=== PATIENT | female | born 1975 | race Caucasian/White ===

== ENCOUNTER 2025-04-09 22:50 | Emergency (ER) | payer OTHER, SELFPAY ==
--- NOTE | 2025-04-09 22:55 | ECG_ITS ---
Test Date: 2025-04-09 23:11:59 Measurements Intervals [place] Rate: 76 P: 53 AL: 150 QRS: -16 QRSD: 86 T: 17 QT: 390 QTc: 441 Interpretive Statements SINUS RHYTHM NORMAL ELECTROCARDIOGRAM No previous ECG available for comparison Electronically Signed On 04-11-2025 07:57:34 CDT by Tera Dalton M.D.
[2025-04-09 23:00] VITALS: BP 140/89; PULSE 102; RESP 18; TEMP 36.4; O2SAT 93
[2025-04-09 23:18] LABS: Hematocrit 45.8 % (35.0-49.0); Hemoglobin 15.5 g/dL (12.0-15.0); Immature Granulocyte Percent A 0.2 % (0.0-0.0); Lymphocytes Absolute Auto 2.21 K/mm3 (1.10-4.50); Mean Corpuscular HGB Conc 33.8 g/dL (32-36); Mean Corpuscular Hemoglobin 30.3 pg (27.0-31.0); Mean Corpuscular Volume 89.6 fL (78.0-102.0); Nucleated Red Blood Cells Absolute Auto 0.00 K/mm3 (0.00-0.00); Nucleated Red Blood Cells Perc 0.0 % (0-0.0); Platelet Count Result 271 K/mm3 (150-420); Red Blood Count 5.11 M/mm3 (4.20-5.40); White Blood Count 5.8 K/mm3 (4.8-10.8)
[2025-04-09 23:31] LABS: Acetaminophen < 10 ug/mL (10-30); Salicylate < 1.0 mg/dL (2-20)
[2025-04-09 23:34] LABS: Alanine Aminotransferase 30 U/L (6-35); Anion Gap 9 mmol/L (4-12); Aspartate Amino Transferase 27 U/L (14-36); Bilirubin,Total 0.6 mg/dL (0.2-1.3); Blood Urea Nitrogen 17 mg/dL (7-17); Calcium 9.0 mg/dL (8.4-10.2); Carbon Dioxide 26 mmol/L (22-30); Chloride 102 mmol/L (98-107); Estimated CRCL calculation 64 ml/min; Estimated Glomerular Filt Rate 58; Glucose 119 mg/dL (65-110); Osmolality Calculated 286 mOsm/kg (285-295); Potassium 3.8 mmol/L (3.4-5.0); Sodium 137 mmol/L (137-145)
[2025-04-09 23:35] LABS: Albumin Level 4.4 g/dL (3.5-5.1); Alkaline Phosphatase 42 U/L (38-126); Total Protein 7.3 g/dL (6.3-8.2)
[2025-04-09 23:39] LABS: Add Urine Microscopic? YES; Appearance Urine Clear (Clear); Glucose Urine UA Negative (Negative); Leukocyte Esterase Ur Trace LEU/UL (Negative); Nitrate Urine Negative (Negative); Specific Grav Ur <= 1.005 (1.010-1.020)
--- NOTE | 2025-04-09 23:50 | PC.NURSE ---
patient remains tearful since arrival, cooperative; son now at bedside. in waiting room states whole family is here that patient daughter is out in the car and asking if patient is still intoxicated. RN updated patient spouse that RN was awaiting results of labs. patient says she won't see her daughter if she is drunk.
[2025-04-09 23:55] LABS: Cannabinoid Screen Urine Negative (Negative)
[2025-04-10 00:03] LABS: Thyroid Stimulating Hormone 1.140 uIU/mL (0.465-4.680)
--- NOTE | 2025-04-10 00:14 | PC.NURSE ---
pt daughter Inez at bedside at this time, patient reports the recent interaction with her son did not go well. patient son Antoine and daughter Inez spoke with this RN. they state they are concerned about their mothers mental health as she was making suicidal comments earlier today and posts on facebook. pt tearful when RN entered room, states she doesn't want to be here (alive) any longer because she doesn't want to mess anything else up with anyone. RN provided comfort as did patient oldest daughter. patient remains cooperative.
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
--- OUTSIDE RECORDS SUMMARY | 2025-04-10 00:25 | XMS_ITS | Clinical Summary ---
Author Organization [facility] Address [facility] [place] [address] Care Team Providers Care Blood Bank Booking Clerk Name Role Phone None, Provider MD Primary Care Provider Unavaila ble Allergies No known active allergies Medications * This document contains information received from the source organization and may not represent a complete record from that organization. SYMBICORT 160-4.5 MCG/ACT inhaler 6 9 Active duloxetine 60 MG capsule Take 1 capsule (60 mg total) by mouth daily. 6 9 Active montelukast 10 MG tablet Take 1 tablet (10 mg total) by mouth daily. 11 9 Active cyclobenzaprine (FLEXERIL) 10 MG tablet Take 1 tablet (10 mg total) by mouth nightly as needed. at bedtime. 2 Active albuterol (PROVENTIL) (2.5 MG/3ML) 0.083% nebulizer solutionIndicat ions:Asthma, unspecified asthma severity, unspecified whether complicated, unspecified whether persistent (HHS/HCC) Take 3 mLs (2.5 mg total) by nebulization every 4 (four) hours as needed for Wheezing. 360 mL 3 Active albuterol sulfate HFA (PROAIR HFA) 108 (90 Base) MCG/ACT inhalerIndicati ons:Asthma, unspecified asthma severity, unspecified whether complicated, unspecified whether persistent (HHS/HCC) Inhale 2 puffs into the lungs every 6 (six) hours as needed for Wheezing. 18 g 3 Active gabapentin (NEURONTIN) 100 MG capsule 3 Active Active Problems Problem Noted Date Diagnosed Date Abdominal pain, acute, right lower quadrant 11/04 Social History Tobacco Use Types Packs/Day Years Used Date Smoking Tobacco: Every Day Cigarettes Smokeless Tobacco: Never Tobacco Cessation:Ready to Q uit: No; Counseling Given: Yes Comments:Provider to address Alcohol Use Standard Drinks/Week Comments No 0 (1 standard drink = 0.6 oz pur e alcohol) AUDIT-C Answer Date Recorded Frequency of Alcohol Consumption Never 07/04/2019 Average Number of Drinks Not on file 019 Frequency of Binge Drinking Not on file 10/2018 PHQ-2 Answer Date Recorded Patient Health Questionnaire-2 Score 0 10/06/2023 Comments No Sex and Gender Information Value Date Recorded Sex Assigned at Not on file Legal Sex Female 10:00 PM DIRECTOR OF PRODUCT DEVELOPMENT Gender Identity Not on file Sexual Orientation Not on file Last Filed Vital Signs Vital Sign Reading Time Taken Comments Blood Pressure 128/80 10/06/2023 8:57 AM DIRECTOR OF PRODUCT DEVELOPMENT Pulse 55 10/06/2023 8:57 AM DIRECTOR OF PRODUCT DEVELOPMENT Temperature 36.6 C (97.8 F) 10/06/2023 8:57 AM DIRECTOR OF PRODUCT DEVELOPMENT Respiratory Rate 16 10/06/2023 8:57 AM DIRECTOR OF PRODUCT DEVELOPMENT Oxygen Saturation 97% 10/06/2023 8:57 AM DIRECTOR OF PRODUCT DEVELOPMENT Inhaled Oxygen Concentration - - Weight 86.2 kg (190 lb) 10/06/2023 8:57 AM DIRECTOR OF PRODUCT DEVELOPMENT Height 165.1 cm (5' 5) 10/06/2023 8:57 AM DIRECTOR OF PRODUCT DEVELOPMENT Body Mass Index 31.62 10/06/2023 8:57 AM DIRECTOR OF PRODUCT DEVELOPMENT Plan of Treatment Health Maintenance Due Date Last Done Comments Cervical Cancer Screening Pa p Smear (Age 30 to 64) Every 3 Years 1975 Colorectal Cancer Screening Colonoscopy (10 Years) 1975 Annual Physical 1978 Hepatitis C 1993 DTaP, Tdap and Td Vaccines ( 1 - Tdap) 1994 Hepatitis B Vaccines (1 of 3 - 19+ 3-dose series) 1994 Pneumococcal Vaccine: Pediatrics (0 to 5 Years) and At-Risk Patients (6 to 49 Years) (1 of 2 - PCV) 1994 Cervical Cancer Screening Pa p with HPV Testing (Age 30 to 64) Every 5 Years 2005 Cervical Cancer Screening wi th HPV 2005 Mammogram Screening 2015 COVID-19 Vaccine (3 - 2023-2 5 season) 2024 06/30/2021, 05/29/2021 PHQ-2 (Physician [place]) 10/04/2024 10/06/2023 Meningococcal B Vaccine Aged Out No l onger eligible based on patient's age to complete this topic Meningococcal Vaccine Aged Out No bry chandler eligible based on patient's age to complete this topic RSV Immunizations Under 20 Months Aged Out No longer eligible b ased on patient's age to complete this topic Insurance [place] [address] Care Teams Blood Bank Booking Clerk Relationship Specialty Start Date End Date None, Provider, PCP - General 07/04/19
--- NOTE | 2025-04-10 00:45 | PC.NURSE ---
patient at nurses station with her adult children stating to RN that she is ready to go home, that she is not going to stay the night. patient awake and alert at this time, ambulatory back to ED 5 for ERP re-evaluation.
--- NOTE | 2025-04-10 01:09 | PC.NURSE ---
RN proceeded to explain to pt concerns by family from patients actions and words in addition to patient being intoxicated therefore unable to answer mental health questions with clarity. patient now much more aggressive and angry she is not being discharged. at doctors desk now, followed by her children, who are agreeable for patient to stay for mental health evaluation pending blood alcohol levels returning to normal levels. patient states she is going to leave and walked out ED on her own. RN phoned kellee KIM requesting assistance for patient to return to dept. patient daughter Inez states she drove the family down and has to work at 9 am, will be unable to come back tomorrow if patient gets discharged after mental health evaluation. patient reports her brother Angel can come get her tomorrow. Kellee KIM arrived to find patient outside with her family, who did not feel comfortable taking pt home in her intoxicated manner. PD updated on situation, pt ambulatory back to ED 5, angry and shouting/cursing. slamming door. claims technician as sitter now at bedside as patient is elopement risk.
--- NOTE | 2025-04-10 02:35 | PC.NURSE ---
patient resting on bed in ED 5. calm at this time with sitter at bedside for monitoring.
--- NOTE | 2025-04-10 02:37 | PC.NURSE ---
patient daughter (23) [facility] [phone] patient son (17) Antoine [facility] [phone] contact as needed pending patient approval.
[2025-04-10 03:46] VITALS: BP 111/75; PULSE 74; RESP 18; TEMP 36.1; O2SAT 96
--- NOTE | 2025-04-10 03:46 | PC.NURSE ---
patient calm, given ice water per request. reports headache. ERP aware, orders obtained.
[2025-04-10] MEDS: ACETAMINOPHEN 325 MG TABLET 650 MG PO ×3 (03:56→19:14)
--- NOTE | 2025-04-10 03:57 | PC.NURSE ---
patient medicated for headache, see DEC. cardiac cath lab radiology technologist at bedside for monitoring as patient is elopement risk. VS obtained per cardiac cath lab radiology technologist without difficulty. RN monitoring. plan for redraw of ethanol level at 0630 with follow up from [employer] at start of their day shift.
--- NOTE | 2025-04-10 05:53 | PC.NURSE ---
PT RESTING ON BED IN ED 5. LAB PHONED TO REMIND OF REPEAT DRAW AT 0630. PATIENT CALM, RESTING WITH SITTER AT BEDSIDE.
[2025-04-10 06:39] VITALS: BP 120/82; PULSE 75; RESP 16; TEMP 36.1; O2SAT 91
--- NOTE | 2025-04-10 06:43 | PC.NURSE ---
PT AWAKE AND AMBULATORY TO BATHROOM AT THIS TIME WITHOUT DIFFICULTY. DRY COUGH NOTED PER SITTER. PATIENT REPORTS SHE USES INHALERS AT HOME.
[2025-04-10] MEDS: ALBUTEROL SULFATE (*SP) INHALER 2 PUFF INHALATION ×3 (06:55→19:15)
--- NOTE | 2025-04-10 07:15 | PC.NURSE ---
PT MEDICATED AND UPDATE PROVIDED. PATIENT ANSWERED [place] SHE IS NOW UNDER LEGAL ALCOHOL LIMIT. SITTER AT BEDSIDE FOR SAFETY AT THIS TIME. REPORT GIVEN TO PEDRO LOPEZ FOR CONTINUATION OF CARE ON DAY SHIFT.
--- NOTE | 2025-04-10 08:47 | PC.NURSE ---
breakfast tray provided. encouraged pt to eat while hot. pt voiced understanding. call to [facility] resource staff. enroute soon.
--- NOTE | 2025-04-10 09:37 | PC.NURSE ---
patient ate 50% of breakfast and drank a pepsi
[2025-04-10 11:37] VITALS: BP 126/82; PULSE 64; RESP 18; TEMP 36.7; O2SAT 98
[2025-04-10 13:08] VITALS: BP 141/97; PULSE 75; RESP 18; TEMP 36.6; O2SAT 96
[2025-04-10 17:00] VITALS: BP 124/89; PULSE 69; RESP 16; TEMP 36.6; O2SAT 98
--- NOTE | 2025-04-10 18:37 | PC.NURSE ---
pt informed of delay with transport. awaiting arrival . voiced understanding. requested to smoke, offered nicotine patch.
[2025-04-10] MEDS: NICOTINE (*PBKC) 21 MG PATCH 1 PATCH TRANSDERM (19:13)
--- NOTE | 2025-04-10 19:13 | PC.NURSE ---
report to vinnie orozco
--- NOTE | 2025-04-10 19:20 | PC.NURSE ---
Report received, pt sitting in room on ER phone speaking w/ family before being transferred. Sitter remains at bedside, pt tearful, given her normal meds as per ERP order. Pt asking why she isn't getting her normal anxiety meds and her gabapentin. ERP ordered home meds and will be given as per order.
[2025-04-10] MEDS: GABAPENTIN 300 MG CAPSULE PO (19:25)
--- NOTE | 2025-04-10 19:31 | PC.NURSE ---
Call [facility] paged to dispatch for transfer. Told by dispatch that no BLS is available now since after 7pm. She will page it out but only ALS is inservice. Awaiting call back to see if [facility] able to take pt for transfer.
[2025-04-10] MEDS: buPROPion HCL XL (24 HR) 150 MG TABCR PO (19:40)
[2025-04-10 21:23] VITALS: BP 128/71; PULSE 74; RESP 18; TEMP 36.6; O2SAT 98
== END 2025-04-10 21:23 ==
PROVIDERS: Emergency Medicine; Emergency Provider Emergency Medicine
DX: F10.920 Alcohol use, unspecified with intoxication, uncomplicated (principal)
CPT/HCPCS: 36415; 80053; 80143; 80179; 80307; 81001; 82077; 84443; 85025; 93005; 99285; A9270